=== PATIENT | male | born 1980 | race Two or more races ===

== ENCOUNTER 2019-10-21 11:06 | Emergency (ER) | payer BC ==
--- NOTE | 2019-10-21 11:16 | PDOC ---
Rapid Medical Evaluation Chief Complaint: Abscess Boil Time Seen by Provider: 10/21/19 11:11 Medical Evaluation: 10/21/19 11:12 Pt presents to the ER for an abscess to his R lower extremity since . States the area is tender to touch. Denies fevers, chills Exam: abscess to R lower extremity with surrounding cellulitis Orders: nothing Pt to proceed to the ER for further evaluation Discharge Disposition - Diagnosis Abscess - Discharge Dispostion Condition at time of disposition: Stable - Referrals - Patient Instructions - Post Discharge Activity
[2019-10-21 11:18] VITALS: BP 119/74; PULSE 89; TEMP 98.6; BMI 32.3
--- NOTE | 2019-10-21 11:43 | PDOC ---
History of Present Illness - General Chief Complaint: Abscess Boil Stated Complaint: BOIL\CYSTS ON RT LEG Time Seen by Provider: 10/21/19 11:11 History Source: Patient Exam Limitations: No Limitations - History of Present Illness Initial Comments: 10/21/19 11:47 HISTORY OF PRESENT ILLNESS: 39-year-old male denies medical history presents emergency department for evaluation of pain and swelling to the inside of his right knee for the past 3 days. 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 Patient reports after his day at work is over he noted increased pain to the medial side of his right knee. He denies any fevers, chills, limited range of motion. No recent travel or sick contacts. PAST MEDICAL HISTORY: Denies past medical history SURGICAL HISTORY: Denies ALLERGIES: No known drug allergies REVIEW OF SYSTEMS General/Constitutional: Denies fever or chills. Denies weakness, weight change. HEENT: Denies change in vision. Denies ear pain or discharge. Denies sore throat. Cardiovascular: Denies chest pain or shortness of breath. Respiratory: Denies cough, wheezing, or hemoptysis. Gastrointestinal: Denies nausea, vomiting, diarrhea or constipation. Denies rectal bleeding. Genitourinary: Denies dysuria, frequency, or change in urination. Musculoskeletal: Denies joint or muscle swelling or pain. Denies neck or back pain. Skin and breasts: See HPI Neurologic: Denies headache, vertigo, loss of consciousness, or loss of sensation. Psychiatric: Denies depression or anxiety. Endocrine: Denies increased thirst. Denies abnormal weight change. Hematologic/Lymphatic: Denies anemia, easy bleeding, or history of blood clots. Allergic/Immunologic: Denies hives or skin allergy. Denies latex allergy. PHYSICAL EXAM General Appearance: Well-appearing, appropriately dressed. No apparent distress, no intoxication. Vascular Pulses: Dorsalis-Pedis (R): 2+, Dorsalis-Pedis (L): 2+ Lymphatic: No adenopathy, tenderness. Musculoskeletal/Extremities: Normal inspection. FROM of all extremities, normal capillary refill. Pelvis Stable. No CVA tenderness. No tenderness to extremities, pedal edema, swelling, erythema or deformity. Integumentary: Erythema and induration present to the right medial knee. Irregular borders presence of the induration extending from immediately superior to the right medial knee through the joint to inferior to the knee. Approximately 4 cm in length and 1 cm across. No appreciable fluctuance present. Past History - Medical History Allergies/Adverse Reactions: Allergies Allergy/AdvReac Type Severity Reaction Status Date / Time No Known Allergies Allergy Verified 10/21/19 11:27 Home Medications: Ambulatory Orders Cephalexin Monohydrate [Keflex -] 500 mg PO Q6H #28 capsule 10/21/19 Sulfamethoxazole/Trimethoprim [Bactrim Ds -] 1 tab PO BID #14 tablet 10/21/19 COPD: No HTN: Yes - Immunization History Immunization Up to Date: No - Psycho-Social/Smoking History Smoking History: Never smoked Have you smoked in the past 12 months: No Information on smoking cessation initiated: No - Substance Abuse Hx (Audit-C & DAST Scrn) How often the patient has a drink containing alcohol: Never Score: In Men: 4 or > Positive; In Women: 3 or > Positive: 0 Screen Result (Pos requires Nsg. Audit-10AR): Negative In the last yr the pt used illegal drug/Rx for NonMed reason: No Score: Yes response is considered Positive: 0 Screen Result (Positive result requires Nsg. DAST-10): Negative *Physical Exam - Vital Signs Last Vital Signs Temp Pulse Resp BP Pulse Ox 98.6 F 89 18 119/74 99 10/21/19 11:11 10/21/19 11:11 10/21/19 11:11 10/21/19 11:11 10/21/19 11:11 Medical Decision Making - Medical Decision Making 10/21/19 11:45 A/P: 39-year-old male with cellulitis to right medial knee Erythema and induration presents to the medial aspect of the right knee. No appreciable fluctuance noted. No lymphangitis present. Full range of motion with flexion and extension of the right knee. Discharge home with prescription for Bactrim and Keflex and instructions to perform warm compresses. I discussed the physical exam findings, ancillary test results and final diagnoses with the patient. I answered all of the patient's questions. The patient was satisfied with the care received and felt comfortable with the discharge plan and treatment plan. The patient will call their primary care physician within 24 hours to arrange follow-up and will return to the Emergency Department with any new, persistent or worsening symptoms. Portions of this note have been documented using voice recognition software. As a result, errors may occur in the dry house tender process. Effort has been made to correct all grammatical and dry house tender error, but some may have been missed which may produce sporadic inaccurate dry house tender or nonsensical phrases. Discharge - Discharge Information Problems reviewed: Yes Clinical Impression/Diagnosis: Cellulitis Qualifiers: Site of cellulitis: extremity Site of cellulitis of extremity: lower extremity Laterality: right Qualified Code(s): L03.115 - Cellulitis of right lower limb Condition: Stable - Admission No - Additional Discharge Information Prescriptions: Sulfamethoxazole/Trimethoprim [Bactrim Ds -] 1 tab PO BID #14 tablet Cephalexin Monohydrate [Keflex -] 500 mg PO Q6H #28 capsule - Follow up/Referral - Patient Discharge Instructions Additional Instructions: Take Keflex 500 mg 4 times a day for the next 7 days Take Bactrim DS one tablet twice a day for the next 7 days Finish all antibiotics even if you feel better. Apply warm compresses to affected areas as needed. Return to emergency department for any worsening pain, drainage, or any other concerns. Thank you very much for choosing us to provide your emergent health care needs. - Post Discharge Activity Work/Back to School Note: Back to Work
== END 2019-10-21 12:06 | disposition home or self-care (01) ==
LOC: JERFT 11:06
DX: L03.115 Cellulitis of right lower limb (principal)
CPT/HCPCS: 99283-25

== ENCOUNTER 2019-10-24 13:15 | Inpatient (IN) | payer BC ==
--- NOTE | 2019-10-24 13:18 | PDOC ---
Rapid Medical Evaluation Time Seen by Provider: 10/24/19 13:16 Medical Evaluation: Allergies Allergy/AdvReac Type Severity Reaction Status Date / Time No Known Allergies Allergy Verified 10/21/19 11:27 10/24/19 13:16 I have performed a brief in-person evaluation of this patient. The patient presents with a chief complaint of: seen in ED 2 days ago for cellulitis to medial R knee and started on abx, no fluctuance noted per notes from prior visit. Returns today stating area is more painful but that swelling is the same. No f/c Pertinent physical exam findings: ~1x2cm induration to medial r knee, no sig erytema I have ordered the following:nothing The patient will proceed to the ED for further evaluation. Discharge Disposition - Diagnosis Knee pain Qualifiers: Chronicity: acute Laterality: right Qualified Code(s): M25.561 - Pain in right knee - Referrals - Patient Instructions - Post Discharge Activity
[2019-10-24 13:20] VITALS: BMI 33.9
--- NOTE | 2019-10-24 14:06 | PDOC ---
History of Present Illness - General Chief Complaint: Wound Stated Complaint: RT. LEG PAIN/ BOIL Time Seen by Provider: 10/24/19 13:16 History Source: Patient Exam Limitations: No Limitations - History of Present Illness Initial Comments: 10/24/19 14:01 Patient is a 39-year-old male who presents to the ED with complaint of a fullness to the medial aspect of his right knee with surrounding bruising that has worsened over the last week. He was seen 3 days ago in the emergency department and was started on antibiotics for cellulitis. The patient states that he is taking the antibiotics but now the area appears bruised. He is also developed bruises all over the rest of his body without injury. He admits to feeling very sluggish and tired and has no energy. He does admit to drinking alcohol every day but states he has not been for the last 2 weeks. The patient states he takes prophylactic Valtrex daily but otherwise denies any past medical history. He denies any allergies to medications. Past History - Medical History Allergies/Adverse Reactions: Allergies Allergy/AdvReac Type Severity Reaction Status Date / Time No Known Allergies Allergy Verified 10/21/19 11:27 Home Medications: Ambulatory Orders Cephalexin Monohydrate [Keflex -] 500 mg PO Q6H #28 capsule 10/21/19 Sulfamethoxazole/Trimethoprim [Bactrim Ds -] 1 tab PO BID #14 tablet 10/21/19 COPD: No HTN: Yes - Immunization History Immunization Up to Date: No - Psycho-Social/Smoking History Smoking History: Current every day smoker Have you smoked in the past 12 months: No Number of Cigarettes Smoked Daily: 20 Information on smoking cessation initiated: Yes - Substance Abuse Hx (Audit-C & DAST Scrn) How often the patient has a drink containing alcohol: Never Score: In Men: 4 or > Positive; In Women: 3 or > Positive: 0 Screen Result (Pos requires Nsg. Audit-10AR): Negative In the last yr the pt used illegal drug/Rx for NonMed reason: No Score: Yes response is considered Positive: 0 Screen Result (Positive result requires Nsg. DAST-10): Negative Review of Systems - Review of Systems Comments:: 10/24/19 14:03 - Review of Systems Able to Perform ROS?: Yes Constitutional: No: Fever, Chills, Loss of Appetite, Night Sweats, Weakness HEENTM: No: Eye Pain, Vision changes, Ear Pain, Throat Pain, Throat Swelling, Mouth Pain, Difficulty Swallowing Respiratory: No: Cough, Shortness of Breath, Wheezing, Sputum Production Cardiac (ROS): No: Chest Pain, Chest Tightness, Palpitations, Irregular Heart Beat, Edema ABD/GI: No: Nausea, Vomiting, Abdominal Pain, Diarrhea : No Dysuria, No Hematuria, No Frequency, No Urgency, No Vaginal Discharge/Pain, No Penile Discharge/Pain Musculoskeletal: No: Muscle Pain, Back Pain, Joint Pain, Muscle Weakness, Neck Pain; positive: Fullness and pain to the right posterior medial knee Integumentary: No: Lesions, Rash; positive: Spontaneous scattered ecchymoses on the body Neurological: No: Headache, Numbness, Tingling, Weakness, Speech Difficulties *Physical Exam - Vital Signs Last Vital Signs Temp Pulse Resp BP Pulse Ox 98.1 F 102 H 20 134/84 100 10/24/19 13:16 10/24/19 13:16 10/24/19 13:16 10/24/19 13:16 10/24/19 13:16 - Physical Exam 10/24/19 14:04 - Physical Exam General Appearance: Nourished, Appropriately Dressed, No Distress HEENT: EOMI, Normal Voice, Hearing Grossly Normal Neck: Supple, No Lymphadenopathy (R), No Lymphadenopathy (L), No Rigidity, No Decreased range of motion Respiratory/Chest: Lungs Clear, Normal Breath Sounds. No Respiratory Distress, No Accessory Muscle Use Cardiovascular: Regular Rhythm, Regular Rate, S1, S2 Gastrointestinal/Abdominal: Normal Bowel Sounds, Soft. Non-tender, No Guarding, No Rebound, No Rigidity Musculoskeletal: Normal Inspection. No Decreased Range of Motion; right po sterior medial knee with fullness appreciated to varicose vein consistent with superficial thrombosis. There is a large area of surrounding ecchymosis surrounding what appears to be a thrombosis. Mild tenderness to palpation. Extremity: Normal Capillary Refill, Normal Inspection Integumentary: Normal Color, Dry. No Rash; scattered ecchymoses appreciated to the bilateral upper and lower extremities and trunk. Ecchymoses are in different stages of healing. 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 He also has scattered ecchymoses on his body and feels no energy. Plan: -Labs including PT/INR -Right lower extremity duplex ultrasound -Will reassess 10/24/19 16:58 The patient has been made aware that he has a superficial thrombophlebitis on the right leg in the popliteal fossa. He has been made aware that this is not a dangerous finding and is not a deep vein thrombosis. The patient CBC resulted with 392k WBCs and platelets of 47. This is potentially a lab error and we will redraw the CBC for further evaluation and treatment. The patient has been made aware of this and understands this treatment plan. He is pending a repeat CBC. 10/24/19 17:43 Repeat CBC shows a WBC count of 398k and platelets of 58K. The patient and his partner have been made aware of these findings and the concern that this may be consistent with a leukemia process. We have advised the patient that he should get admitted for further evaluation and treatment. After telling the patient these results he began to slur his speech and not make any sense. A CT head has been ordered. The patient will be admitted for further evaluation and treatment. After pulling the partner side she states for the last 2 days the patient has been slurring his speech similarly. The patient had been making sense throughout his visit in the emergency department and the slurred speech is new. Will page the hospitalist for admission. 10/24/19 18:19 Pt found to have what appears to be brain metastasis on CT head. Hospitalist paged for admission. Discharge - Discharge Information Problems reviewed: Yes Clinical Impression/Diagnosis: Thrombocytopenia, Brain mass Knee pain Qualifiers: Chronicity: acute Laterality: right Qualified Code(s): M25.561 - Pain in right knee Leukocytosis Qualifiers: Leukocytosis type: other Qualified Code(s): D72.828 - Other elevated white blood cell count Condition: Fair - Admission Yes - Follow up/Referral - Patient Discharge Instructions - Post Discharge Activity
[2019-10-24 16:18] LABS: BASO % 0.5 % (0-2.0); EOS % 1.2 % (0-4.5); HEMATOCRIT 31.7 % (35.4-49); HEMOGLOBIN 9.8 GM/dL (11.7-16.9); LYMPH % 29.5 % (8-40); MCH 30.3 pg (25.7-33.7); MCHC 30.7 g/dl (32.0-35.9); MEAN CELL VOLUME 98.5 fl (80-96); MEAN PLT VOLUME 7.1 fl (7.5-11.1); MONO % 13.1 % (3.8-10.2); NEUT % 55.7 % (42.8-82.8); PLATELET COUNT 47 K/MM3 (134-434); RBC 3.22 M/mm3 (4.00-5.60); RDW 16.8 % (11.9-15.9)
[2019-10-24 16:36] LABS: INR 1.52 (0.83-1.09)
[2019-10-24 16:50] LABS: ALBUMIN 3.4 g/dl (3.4-5.0); BILIRUBIN,TOTAL 0.8 mg/dL (0.2-1); BLOOD UREA NITROGEN 14.6 mg/dL (7-18); CALCIUM 8.9 mg/dL (8.5-10.1); CREATININE 1.2 mg/dL (0.55-1.3); TOT PROT 6.5 g/dl (6.4-8.2)
[2019-10-24 17:27] LABS: BASO % 0.3 % (0-2.0); EOS % 18.4 % (0-4.5); HEMATOCRIT 31.9 % (35.4-49); HEMOGLOBIN 9.9 GM/dL (11.7-16.9); LYMPH % 0.4 % (8-40); MCH 30.5 pg (25.7-33.7); MCHC 31.1 g/dl (32.0-35.9); MEAN CELL VOLUME 98.2 fl (80-96); MEAN PLT VOLUME 6.6 fl (7.5-11.1); MONO % 1.1 % (3.8-10.2); NEUT % 79.8 % (42.8-82.8); PLATELET COUNT 53 K/MM3 (134-434); RBC 3.24 M/mm3 (4.00-5.60); RDW 16.9 % (11.9-15.9)
[2019-10-24 17:29] LABS: WHITE BLOOD COUNT 398.1 K/mm3 (4.0-10.0)
[2019-10-24] MEDS ORDERED: POTASSIUM CHLORIDE ORAL LIQUID 20 MEQ/15 ML PO ONE (17:37)
[2019-10-24 17:47] LABS: ALBUMIN 3.5 g/dl (3.4-5.0); BILIRUBIN,TOTAL 0.8 mg/dL (0.2-1); BLOOD UREA NITROGEN 14.3 mg/dL (7-18); CREATININE 1.2 mg/dL (0.55-1.3); TOT PROT 6.6 g/dl (6.4-8.2)
[2019-10-24] MEDS ORDERED: POTASSIUM CHLORIDE ORAL LIQUID 20 MEQ/15 ML ONE (17:49)
--- NOTE | 2019-10-24 18:02 | PDOC ---
*Physical Exam - Vital Signs Last Vital Signs Temp Pulse Resp BP Pulse Ox 98.1 F 110 H 20 113/78 98 10/24/19 22:18 10/24/19 22:18 10/24/19 22:18 10/24/19 22:18 10/24/19 22:00 <Leonel Steiner - Last Filed: 10/25/19 04:31> - Vital Signs Last Vital Signs Temp Pulse Resp BP Pulse Ox 98.1 F 102 H 20 134/84 100 10/24/19 13:16 10/24/19 13:16 10/24/19 13:16 10/24/19 13:16 10/24/19 13:16 <Nini Ramirez - Last Filed: 10/25/19 19:30> ED Treatment Course - LABORATORY CBC & Chemistry Diagram: 10/24/19 17:15 10/24/19 17:15 - ADDITIONAL ORDERS Additional order review: Laboratory Results 10/24/19 10/24/19 10/24/19 17:51 17:15 16:00 PT with INR INR PTT (Actin FS) Fibrinogen D-Dimer Sodium 142 Potassium 3.0 L Chloride 108 H Carbon Dioxide 25 Anion Gap 9 BUN 14.3 Creatinine 1.2 Est GFR (CKD-EPI)AfAm 89.00 Est GFR (CKD-EPI)NonAf 76.79 POC Glucometer 89 Random Glucose 108 H Uric Acid 8.5 H Calcium 9.0 Total Bilirubin 0.8 AST 49 H ALT 22 Alkaline Phosphatase 69 LD Total 1826 H Total Protein 6.6 Albumin 3.5 Blood Type A POSITIVE 10/24/19 10/24/19 10/24/19 16:00 16:00 16:00 PT with INR 18.00 H INR 1.52 H PTT (Actin FS) 40.9 H Fibrinogen 128.0 L D-Dimer 58062 H Sodium 140 Potassium 3.0 L Chloride 108 H Carbon Dioxide 26 Anion Gap 6 L BUN 14.6 Creatinine 1.2 Est GFR (CKD-EPI)AfAm 89.00 Est GFR (CKD-EPI)NonAf 76.79 POC Glucometer Random Glucose 131 H Uric Acid Calcium 8.9 Total Bilirubin 0.8 AST 74 H ALT 26 Alkaline Phosphatase 68 LD Total Total Protein 6.5 Albumin 3.4 Blood Type 10/24/19 10/24/19 10/24/19 17:51 17:15 16:02 RBC 3.24 L 3.22 L MCV 98.2 H 98.5 H MCHC 31.1 L 30.7 L RDW 16.9 H 16.8 H MPV 6.6 L 7.1 L Neutrophils % 79.8 D 55.7 Lymphocytes % 0.4 L 29.5 Monocytes % 1.1 L D 13.1 H Eosinophils % 18.4 H D 1.2 Basophils % 0.3 0.5 POC Glucometer 89 - Medications Given in the ED: ED Medications Discontinued Medications Generic Name Dose Route Start Last Admin Trade Name Christos PRN Reason Stop Dose Admin Allopurinol 300 mg 10/24/19 20:55 10/24/19 21:22 Zyloprim - PO 10/24/19 20:56 Not Given ONCE ONE Fentanyl 100 mcg 10/24/19 21:13 10/24/19 21:21 Sublimaze Injection - IVPUSH 10/24/19 21:14 100 mcg ONCE ONE Administration Fentanyl 100 mcg 10/24/19 22:03 10/24/19 22:11 Sublimaze Injection - IVPUSH 10/24/19 22:04 100 mcg ONCE ONE Administration Potassium Chloride 10 meq in 100 mls @ 100 mls/hr 10/24/19 19:45 10/24/19 21:43 Potassium Chloride 10 Meq Premix Ivpb - IVPB 10/24/19 21:44 100 mls/hr Q60M MALA Administration Levetiracetam 1,000 mg 10/24/19 18:27 10/24/19 18:35 Keppra Injection - IVPB 10/24/19 18:28 1,000 mg ONCE ONE Administration Lorazepam 0.5 mg 10/24/19 20:25 10/24/19 21:20 Ativan Injection - IVPUSH 10/24/19 20:26 0.5 mg ONCE ONE Administration Midazolam HCl 5 mg 10/24/19 21:20 10/24/19 21:59 Versed - IVPUSH 10/24/19 21:21 5 mg ONCE ONE Administration Phytonadione 2.5 mg 10/24/19 20:19 10/24/19 21:58 Aqua Mephyton Injection - IVPB 10/24/19 20:20 2.5 mg ONCE ONE Administration Potassium Chloride 40 meq 10/24/19 17:37 10/24/19 19:39 Potassium Chloride Oral Liquid PO 10/24/19 17:38 40 meq ONCE ONE Administration Propofol 5,000 mcg 10/24/19 22:05 10/24/19 22:11 Diprivan - IVPUSH 10/24/19 22:06 5,000 mcg ONCE ONE Administration Sodium Chloride 1,000 ml 10/24/19 19:47 10/24/19 19:59 Normal Saline - IV 10/24/19 19:48 1,000 ml ONCE ONE Administration <Leonel Steiner - Last Filed: 10/25/19 04:31> - LABORATORY CBC & Chemistry Diagram: 10/24/19 17:15 10/24/19 17:15 - ADDITIONAL ORDERS Additional order review: Laboratory Results 10/24/19 10/24/19 10/24/19 17:51 17:15 16:00 PT with INR INR Sodium 142 140 Potassium 3.0 L 3.0 L Chloride 108 H 108 H Carbon Dioxide 25 26 Anion Gap 9 6 L BUN 14.3 14.6 Creatinine 1.2 1.2 Est GFR (CKD-EPI)AfAm 89.00 89.00 Est GFR (CKD-EPI)NonAf 76.79 76.79 POC Glucometer 89 Random Glucose 108 H 131 H Calcium 9.0 8.9 Total Bilirubin 0.8 0.8 AST 49 H 74 H ALT 22 26 Alkaline Phosphatase 69 68 Total Protein 6.6 6.5 Albumin 3.5 3.4 10/24/19 16:00 PT with INR 18.00 H INR 1.52 H Sodium Potassium Chloride Carbon Dioxide Anion Gap BUN Creatinine Est GFR (CKD-EPI)AfAm Est GFR (CKD-EPI)NonAf POC Glucometer Random Glucose Calcium Total Bilirubin AST ALT Alkaline Phosphatase Total Protein Albumin 10/24/19 10/24/19 10/24/19 17:51 17:15 16:02 RBC 3.24 L 3.22 L MCV 98.2 H 98.5 H MCHC 31.1 L 30.7 L RDW 16.9 H 16.8 H MPV 6.6 L 7.1 L Neutrophils % 79.8 D 55.7 Lymphocytes % 0.4 L 29.5 Monocytes % 1.1 L D 13.1 H Eosinophils % 18.4 H D 1.2 Basophils % 0.3 0.5 POC Glucometer 89 <Nini Ramirez - Last Filed: 10/25/19 19:30> Medical Decision Making - Medical Decision Making 10/24/19 17:58 Received sign out from Dian Carias. 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 He also has scattered ecchymoses on his body and endorses fatigue. Of note pt seen 3 days ago in ED started on abx for presumed abscess/cellulitis of knee. US reviewed: superficial thrombophlebitis on the right leg in the popliteal fossa. Labs reviewed: WBC 398k, PLT 58k, concerning for leukemia Pt initially was neurologically intact. Approx 4hrs into assessment, pt suddenly began slurring speech and not making sense, which partner states has been happening intermittently x2 days. -CTH: multiple bilateral cerebral masses suspicious for metastatic lesions -Repeat neuro/NIHSS: slurred incomprehensible speech, unable to follow commands, strength and sensation grossly intact throughout -Consult NSGY Dr Rocha: called @[id number] -Consult Neuro Dr Salinas -Consult Heme/Onc Dr Singer -Admit - Jv calling admitting hospitalist 10/24/19 18:[address] Rocha - recommends MRI brain with and without contrast. 1g Keppra followed by 500mg BID. [] degree of edema on MRI, consider steroids. Consult med onc. Dr Cross spoke with Dr Salinas - no further recommendations at this time. -MRI w/w/o contrast: form signed by girlfriend -1g Keppra -Rectal temp afebrile Per girlfriend, pt's parents have passed, pt has no siblings he is in contact with (and she has no contact information for any), and pt has 1 child but is <18yo. Girlfriend is emergency contact and will make decisions. Senior resident called ICU - accepted for ICU admission 10/24/19 20:06 Pt had 3x hematemesis (<1 cup, mixed blood/vomit, small chunks) on way to MRI. Brought back to ED and held MRI. No change in neuro status. Received call from Dr Singer - due to blasts >55%, pt in acute leukemia and requires admission to heme/onc floor for emergent intensive chemotherapy. Since we do not have a heme/onc floor or capacity to treat him here, must transfer to [facility]. -[facility] center called Spoke with [facility] ICU Dr Dupont - wants pt intubated and sedated then call back and can make bed in ICU. 10/24/19 21:13 Pt agitated, confused, incomprehensible speech, trying to repeatedly get out of bed, risking harm to self. -Ativan -Versed RSI with etomidate and rocuronium, intubated 8.0 by glideoscope, 24 at lip, OG tube placed 60 at lip, sedated with propofol @12 and fentanyl push 100. Updated [facility] ICU Dr Dupont - accepted for transfer to [facility]. Transport arranged. Pt required increased propofol drip to rate 20 for sedation, plus additional propofol push and fentanyl push. Pt transported. <Nini Ramirez - Last Filed: 10/25/19 19:30> Discharge <Leonel Steiner - Last Filed: 10/25/19 04:31> - Discharge Information Problems reviewed: Yes - Admission No - Transfer to Acute Care Facility Receiving Facility Name: [email or web address] <Nini Ramirez - Last Filed: 10/25/19 19:30> - Discharge Information Clinical Impression/Diagnosis: Thrombocytopenia, Brain mass Knee pain Qualifiers: Chronicity: acute Laterality: right Qualified Code(s): M25.561 - Pain in right knee Leukocytosis Qualifiers: Leukocytosis type: other Qualified Code(s): D72.828 - Other elevated white blood cell count Condition: Fair Disposition: TRANSFER ACUTE CARE/OTHER HOSP Procedures - Additional Procedures Progress: PROCEDURE NOTE: Endotracheal Intubation PROCEDURE CLERICAL ORDER FILLER: Leonel Steiner M.D., PGY3 ATTENDING PHYSICIAN: Dr. Cross In Attendance: yes INDICATION: Airway Protection CONSENT: The procedure emergent and performed with implied permission. PROCEDURE SUMMARY: A time out was performed. My hands were washed immediately prior to the procedure. I wore a mask with protective eyewear and gloves throughout the pro cedure. The patient was placed on continuous cardiac and pulse oximetry monitoring. Rapid Sequence Intubation was conducted. The patient received Etomidate for induction and Rocuronium for adequate paralysis. Using a GlideScope for video laryngoscopy and an endotracheal tube (size 8.0) with stylet, the patient was intubated on the 2nd attempt. The stylet was removed and cuff balloon was inflated. Appropriate endotracheal tube position was confirmed by direct visualization of vocal cord passage, fogging of the tube, CO2 return on continuous waveform capnography, and symmetric breath sounds. The tube was secured at 24 cm at the lips. Post intubation chest x-ray is pending at this time. COMPLICATIONS: None. <Leonel Steiner - Last Filed: 10/25/19 04:31>
[2019-10-24 18:08] LABS: ACTIVATED PTT 40.9 SECONDS (25.2-36.5)
[2019-10-24] MEDS ORDERED: levETIRAcetam 500 MG/5 ML INJECTION VIAL IVPB ONE ×2 (18:27→18:39)
--- NOTE | 2019-10-24 18:29 | PDOC ---
Attending Attestation - Resident Resident Name: Dian Carias Omar - HPI HPI: 10/24/19 18:15 Pt presented to the ED complaining of easy brusing and decreased energy. Patients significant other reports that he has also been experiencing episodes of intermittent altered mental status and slurred speech. - Physicial Exam PE: 10/24/19 18:17 Agree with COMPLIANCE REPRESENTATIVE exam. Patient is alert and in no acute distress, but is oriented x 1. Paitent is responding to questions, but has inappropriate, garbled speech. Patient is moving all extremities and appears other sher neurologically intact. - Critical Care Time Total Critical Care Time: 75 Critical Care Statement: The care of this patient involved high complexity decision making to prevent further life threatening deterioration of the patient's condition and/or to evaluate & treat vital organ system(s) failure or risk of failure. - Medical Decision Making 10/24/19 18:19 Pt presented to the ED complaining of decreased energy and easy bruising. Initially neurologically intact. CBC showed extensive abnormalities, with extremely elevated WBC count, anemia and thrombocytopenia. Patient became altered and oriented x 1 with slurred speech but without other neurologic deficits. CT shows multiple masses with surrounding edema. Will consult neurosurgery and neurology and admit to medicine. Will consult ICU. 10/24/19 18:40 Patient requires emergent MRI and is unable to sign consent. Will perform study emergently. 10/24/19 20:56 Patient accepted for transfer to [facility]. Became extremely agitated, still very confused, not responding to redirection. [facility] critical care fellow requesting intubation prior to transfer. patient intubated with 8.0 ETT after a single attempt. Discharge - Discharge Information Problems reviewed: Yes Clinical Impression/Diagnosis: Thrombocytopenia, Brain mass Knee pain Qualifiers: Chronicity: acute Laterality: right Qualified Code(s): M25.561 - Pain in right knee Leukocytosis Qualifiers: Leukocytosis type: other Qualified Code(s): D72.828 - Other elevated white blood cell count Condition: Fair Disposition: TRANSFER ACUTE CARE/OTHER HOSP - Follow up/Referral - Patient Discharge Instructions - Post Discharge Activity
--- NOTE | 2019-10-24 19:28 | PN ---
Progress Note (short form) - Note Progress Note: NEUROSURGERY CONSULT DICTATED Chart reviewed Head CT reviewed c/o fullness to the medial aspect of his right knee with surrounding bruising which worsened over the last week. He was seen 3 days ago in ED and started on antibiotics for cellulitis. Denies H/A, N/V until pt got to MRI and vomited there. Girlfriend reported intermittent slurred speech for some time. PE: T 99.8, VSS HEENT- NC/AT; Neck- supple; Cor- RR; Lungs- CTA; Abd- benign; Ext- no sign of DVT Not speaking much, does not clearly obey commands CN- B pupils 3mm sluggish, EOMF grossly, face symmetric; Motor- some movements B UE/lE; Sensation- difficult to assess; DTR- 2+, toes equivocal WBC 398; Hgb 9.9, platelet 53, INR 1.52, ptt 40.[address]- multifocal supratentorial subcortical/white matter hyperdensities with some surrounding edema; largest one is L superior temporal region approx 2.8 x 3 cm; no HCP, mild local mass effect; No shift Leukemic disease with blastic crisis? Multiple intracranial hemorrhagic lesions ? secondary to coagulopathy and marrow suppression with thrombocytopenia; multiple metastatic lesions this man at age 40 without known primary would be highly unusual Recommend med onc consult Consider platelet transfusion to bring platelet count to above 80k-100k Vitamin K Keppra 1 gm load then 500 mg bid Decadron 10 mg ivp and gastritis prophylaxis MRI with and without ren to assess nature of hemorrhagic lesions
[2019-10-24] MEDS ORDERED: KCL 10 MEQ IVPB 20 MEQ/200 ML INFUS.BAG IVPB ONE (19:47)
[2019-10-24] MEDS ORDERED: SODIUM CHLORIDE 0.9% 500 ML INFUS.BAG IV ONE (19:47)
[2019-10-24] MEDS: KCL 10 MEQ IVPB 10 MEQ/100 ML INFUS.BAG IVPB SCH ×2 (19:59→21:43)
[2019-10-24] MEDS ORDERED: PHYTONADIONE 10 MG/1 ML AMP IVPB ONE (20:19)
[2019-10-24] MEDS ORDERED: LORazepam 2 MG/ML SDV VIAL ONE (20:25)
[2019-10-24] MEDS ORDERED: RAPID SEQUENCE INTUBATION KIT NR ONE (20:28)
[2019-10-24] MEDS ORDERED: MIDAZOLAM HCL 2 MG/2 ML SINGLE DOSE VIAL ONE (20:45)
[2019-10-24] MEDS ORDERED: PROPOFOL 1,000,000 MCG/100 ML VIAL ONE (20:48)
[2019-10-24] MEDS ORDERED: ALLOPURINOL 300 MG TABLET (FP) PO ONE (20:55)
--- NOTE | 2019-10-24 20:56 | CON.HO ---
Consult - text type - Consultation Consultation Note: 39-year-old male who presents to the ED with complaint of a fullness to the medial aspect of his right knee with surrounding bruising that has worsened over the last week. He was seen 3 days ago in the emergency department and was started on antibiotics for cellulitis. The patient states that he is taking the antibiotics but now the area appears bruised. He also developed generalized, spontaneous bruising. PEr ER notes her has had slurred speech over past couple of weeks. He developed altered mental status and vomiting He presents ith WBC 398,000 , altered mental status. He decompensated in the ED and was intubated On review of the smear -- >50% blasts Allergies/Adverse Reactions: Allergies Allergy/AdvReac Type Severity Reaction Status Date / Time No Known Allergies Allergy Verified 10/21/19 11:27 Home Medications: Ambulatory Orders Cephalexin Monohydrate [Keflex -] 500 mg PO Q6H #28 capsule 10/21/19 Sulfamethoxazole/Trimethoprim [Bactrim Ds -] 1 tab PO BID #14 tablet 10/21/19 PMH COPD: No HTN: Yes - Psycho-Social/Smoking History Smoking History: Current every day smoker - Vital Signs Last Vital Signs Temp Pulse Resp BP Pulse Ox 98.1 F 102 H 20 134/84 100 10/24/19 13:16 10/24/19 13:16 10/24/19 13:16 10/24/19 13:16 10/24/19 13:16 - Physical Exam Cor: RSR, No murmurs, No gallops Lungs: Clear to P&A Abd: Soft, Normal bowel sounds, No organomegaly Ext:No significant edema Assessment: Patient is a 39-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 Also with spontaneous bruising, slurred speech, fatigue. WBC 398,000, platelets 53,000, Smear shows >50% blasts CT head discussed with radiology -- solid lesions with ? hemorrhage ---? mets. Seems less likely infectious . MRI recommended Discussed with resident Discussed with ER attending --- acute leukemia, r/o APL, check LDH/uric acid/PT/PTT/fibrinogen/ Transfuse monodonor platelets to keep >80-100,000 IV hydration allopurinol check cultures Transfer to [facility] Discussed above findings and concerns with oncology attending at [facility]
[2019-10-24 21:19] LABS: URIC ACID 8.5 mg/dL (2.6-7.2)
[2019-10-24] MEDS ORDERED: MIDAZOLAM HCL 5 MG/1 ML Single Dose Vial IVPUSH ONE (21:20)
[2019-10-24] MEDS ORDERED: PROPOFOL 1,000,000 MCG/100 ML VIAL IVPB SCH (21:30)
[2019-10-24] MEDS ORDERED: SODIUM CHLORIDE 1,000 ML IV SCH (21:30)
[2019-10-24 22:01] VITALS: BP 113/78; PULSE 110
[2019-10-24 22:02] LABS: EPI CELLS >36 /uL (0-25.1); HYALINE CASTS 83 /uL (0-3.1); URINE APPEARANCE TURBID; URINE BILIRUBIN NEGATIVE (NEGATIVE); URINE COLOR YELLOW; URINE GLUCOSE (UA) NEGATIVE (NEGATIVE); URINE KETONE TRACE (NEGATIVE); URINE LEUK ESTERASE NEGATIVE (NEGATIVE); URINE NITRITE NEGATIVE (NEGATIVE); URINE PROTEIN 3+ (NEGATIVE); URINE RBC 752 /uL (0-23.9)
[2019-10-24] MEDS ORDERED: PROPOFOL 200 MG/20 ML VIAL IVPUSH ONE (22:05)
[2019-10-24 22:22] VITALS: TEMP 98.1
[2019-10-24 22:22] LABS: URINE BACTERIA 10.9 /uL (0-1359); URINE WBC 1217.9 /uL (0-25.8)
--- NOTE | 2019-10-25 00:59 | CONS ---
DATE OF CONSULTATION: 10/24/2019 REQUESTING PHYSICIAN: Maricruz Cross MD CONSULTING PHYSICIAN: Leonides Dickerson MD, neurosurgery. CHIEF COMPLAINT: Multiple intracranial hemorrhagic lesions. HISTORY OF PRESENT ILLNESS: The patient is a 39-year-old right-handed male who was brought to the emergency room because of altered mental status, slurred speech, as well as swelling on the right knee area. He also developed ecchymosis over the area. 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 The patient could not give a history at the time of my evaluation. He was treated 1 week earlier for possible cellulitis of the knee with oral antibiotic. He denied headache, nausea, vomiting until he got to the MRI this evening, when he vomited there. He had no prior seizure activity. His slurred speech has been on and off for some time according to the girlfriend's communication with emergency room staff. PAST MEDICAL HISTORY: Significant for HSV. CURRENT MEDICATIONS: Includes Keflex and Bactrim. ALLERGIES: No known drug allergies. FAMILY HISTORY: Noncontributory. SOCIAL HISTORY: He is a nonsmoker. He drinks alcohol socially. REVIEW OF SYSTEMS: Otherwise negative for other major constitutional, head/neck, cardiovascular, pulmonary, gastrointestinal, genitourinary, endocrinologic, neurologic, or psychological problems except for the above. PHYSICAL EXAMINATION: Vital signs: Temperature is 99.8, blood pressure 155/72 with pulse rate of 100, O2 saturation is 100% on room air. HEENT: Normocephalic, atraumatic, anicteric. Neck: Supple with no carotid bruit. Coronary: Demonstrated tachycardia. Lungs: Clear to auscultation bilaterally. Abdomen: Benign. Extremities: No signs of DVT. Neurologic: The patient is drowsy but arousable. He does not clearly follow commands. He does open his eyes to voice. Cranial nerves examination is grossly intact with sluggish pupils bilaterally and symmetric. Motor examination shows some spontaneous movement to pain bilaterally. Sensory examination is difficult to assess. Deep tendon reflexes are 2+ throughout. Toes are equivocal. LABORATORY EXAMINATION: White blood cell count of 398, hemoglobin 9.9, hematocrit 31.9, platelet count 53,000. INR 1.52 and PT is 40.9, serum sodium is 142, and potassium is 3.0. BUN and creatinine are 14.3 and 1.2 respectively. LFTs are generally normal except for slightly elevated AST. Albumin is 3.5. Blood cultures are pending. CT of the head demonstrated multiple intracranial hemorrhagic lesions in the bilateral hemisphere. The largest lesion is in the left superior temporal lobe approximately 2.8 x 3 cm with mild surrounding edema. In summary, there is a right lateral temporal, a right lateral frontal, a left frontal, and a left superior temporal lesion. These are all hyperdense in nature, and the left frontal lesion may have a blood fluid level. These are all subcortical or in the white matter. Mild edema may be present with a left superior temporal lesion. IMPRESSION: 1. Multifocal intracranial hemorrhagic lesions. 2. 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 3. Reported history of hypertension. 4. Reported history of herpes simplex virus. RECOMMENDATION: The patient presented with altered mental status and nausea/vomiting. He also developed slurred speech intermittently over the last couple of weeks. The Doppler of the right lower extremity demonstrated superficial phlebitis. The presence of multiple intracranial lesions could be metastatic, but given a gentleman of his age and without clear prior malignancy disease, multiple metastatic lesions would be highly unusual. This may be more possibly related to his altered hepatic function and with elevated INR/PTT as well as thrombocytopenia related to his potential blastic crisis. Medical oncology consultation is recommended. I would also recommend possible platelets transfusion to bring the platelet count up to 80 to 100 thousand at a minimum. At the same time, vitamin K should also be considered. The patient is also recommended to receive Keppra 1 g V load and to be followed by 500 mg p.o. b.i.d. for seizure prophylaxis. Metastatic evaluation could be carried out, but if these are indeed enhancing, these could be consistent metastases. At this time I believe these to be purely hemorrhagic lesions due to coagulopathy and thrombocytopenia. A baseline brain MRI with or without gadolinium is recommended to assess the nature of these multiple lesions. Blood cultures are also recommended to rule bacteria with septic emboli/associate hemorrhage. The above were discussed with the emergency room resident and the attending. LEONIDES DICKERSON M.D. [id number] [facility] CENTEROmar
--- NOTE | 2019-10-27 10:16 | EKG ---
Test Reason : Blood Pressure : / mmHG Vent. Rate : 091 BPM Atrial Rate : 091 BPM P-R Int : 178 ms QRS Dur : 108 ms QT Int : 374 ms P-R-T Axes : 048 009 030 degrees QTc Int : 460 ms NORMAL SINUS RHYTHM INFERIOR INFARCT , AGE UNDETERMINED ABNORMAL ECG NO PREVIOUS ECGS AVAILABLE Confirmed by Janette Gerard ([id number]) on 10/27/2019 10:16:05 AM Referred By: Confirmed By:Janette Gerard
== END 2019-10-24 22:18 | disposition short-term general hospital (02) | DRG 840 ==
LOC: JER 13:15 → JERFT 13:15 → JERBED 18:53
PROVIDERS: ADMIT Internal Medicine Pulmonary Disease; ATTEND Internal Medicine Pulmonary Disease
PROC: 0BH17EZ Insertion of Endotracheal Airway into Trachea, Via Natural or Artificial Opening (ICD-10-PCS; principal; 2019-10-24)
PROC: 5A1935Z Respiratory Ventilation, Less than 24 Consecutive Hours (ICD-10-PCS; 2019-10-24)
DX: C95.90 Leukemia, unspecified not having achieved remission (principal); G93.6 Cerebral edema; F17.210 Nicotine dependence, cigarettes, uncomplicated; R41.82 Altered mental status, unspecified; R45.1 Restlessness and agitation; D69.6 Thrombocytopenia, unspecified; G93.9 Disorder of brain, unspecified; R58 Hemorrhage, not elsewhere classified; I80.8 Phlebitis and thrombophlebitis of other sites
CPT/HCPCS: 36415; 70450-TC; 71045-TC-FY; 80053; 81003; 82962; 83615; 84550; 85025; 85379; 85384; 85610; 85730; 86850; 86900; 86901; 87040; 87086; 87110; 87389; 93005; 93010; 93971-TC; 94002; 99291; 99292; U0003